=== PATIENT | female | born 1970 | race Caucasian/White ===

== ENCOUNTER → 2018-10-29 13:31 | Outpatient (CLI) | payer OTHER, SELFPAY ==
--- NOTE | 2018-10-29 | DI.CT.S_ITS ---
PROCEDURE: CT ANGIO CHEST ABDOMEN PELVIS INDICATIONS: Fibromuscular dysplasia TECHNIQUE: Precontrast 5 mm thick sections acquired from the lung apices to the iliac crests. After the administration of intravenous contrast, 2.5 mm thick sections again acquired from the lung apices to the iliac crests. Maximum intensity projection (MIP) oblique sagittal and coronal reformats were then acquired. For radiation dose reduction, the following was used: automated exposure control. COMPARISON: None. FINDINGS: Image quality: Excellent. AORTA: The aorta demonstrates normal course and caliber. No intramural hematoma. No wall thickening. No periaortic fat stranding. No stenosis. No aneurysmal dilatation. There is conventional anatomy of the great vessels. Visualized portions of the bilateral subclavian arteries, common carotid arteries, and vertebral arteries demonstrate normal course and caliber. CHEST: Lungs and pleura: No acute airspace opacities. No pleural effusions or pneumothorax. Central and peripheral airways are patent and normal in caliber. Mediastinum: Heart size is normal. No pericardial effusion. No mediastinal or hilar adenopathy by size criteria. Central pulmonary arteries are normal in size. Esophagus is normal in caliber. No hiatal hernias. Bones and chest wall: No axillary adenopathy by size criteria. Thyroid gland is unremarkable. No suspicious bony lesions. No vertebral body compression fractures. ABDOMEN: Vasculature: Celiac trunk and mesenteric arteries are patent. The renal arteries are patent without focal stenoses. Solid organs: Liver is normal in size and diffusely hypodense suggesting hepatic steatosis. Gallbladder is unremarkable. Biliary system is non dilated. Pancreas enhances normally. Spleen is normal in size and enhancement. No adrenal nodules. Both kidneys are normal in size and enhancement, without hydronephrosis. A low-density cystic lesion is present within the lower pole of the left kidney. Peritoneum and bowel: No free fluid or air. Bowel loops are normal in caliber and wall thickness. There are scattered sigmoid diverticula. No evidence for diverticulitis. The appendix is thin walled and gas filled. Nodes and vessels: No retroperitoneal or mesenteric adenopathy by size criteria. Inferior vena cava is normal in morphology. Miscellaneous: No ventral hernias. PELVIS: Genitourinary: Bladder wall thickness is normal. Miscellaneous: No inguinal hernias or adenopathy. No ventral hernias. Bones: No suspicious bony lesions. No vertebral body compression fractures. IMPRESSION: 1. Normal thoracic and abdominal aorta without focal stenosis, aneurysmal dilatation, or wall abnormalities. 2. Normal appearance of the mesenteric and renal arteries. Specifically, there are no mesenteric or renal arterial stenoses to suggest fibromuscular dysplasia. Dictated by: Jenni Montez M.D. on 10/29/2018 at 18:34 Approved by: Jenni Montez M.D. on 10/29/2018 at 18:38
== END ==
PROVIDERS: PCP Family Medicine; Visit Provider Nurse Practitioner
DX: I77.3 Arterial fibromuscular dysplasia (principal)
CPT/HCPCS: 71275; 74174; Q9967

== ENCOUNTER → 2018-11-21 08:44 | Outpatient (CLI) | payer OTHER, SELFPAY ==
--- NOTE | 2018-11-21 | DI.CT.S_ITS ---
PROCEDURE: CT ANGIO HEAD AND NECK INDICATIONS: Dissection of carotid artery TECHNIQUE: Pre-contrast 4.5 mm thick sections acquired from the foramen magnum to the vertex. Precontrast images were also obtained through the neck. After the administration of intravenous contrast, 1 mm thick sections acquired from the aortic arch through the [place]. Post-contrast 4.5 mm thick sections then re-acquired from the foramen magnum to the vertex. 3-dimensional bhmeogt-scdecevke-gkzqfthlip (MIP) and/or volume rendering reformats were acquired of the central intracranial vasculature and neck separately. COMPARISON: [facility], MR, BRAIN WITHOUT CONTRAST, 01/13/2011, 8:24. Outside Facility, RG, CT HEAD / NECK ANGIO, 06/12/2018, 11:14. Outside Facility, RG, MRI HEAD W/WO CONTRAST, 09/04/2018, 10:00. FINDINGS: Image quality: This examination is somewhat limited by quantum mottle artifact. BRAIN: CSF spaces: Ventricles are normal in size and shape. Basal cisterns are patent. No extra-axial fluid collections. Brain: No midline shift. No intracranial bleeds or masses. Person-white matter interface appears intact. Skull and face: Calvarium and facial bones appear intact, without suspicious lesions. Orbits appear normal. Sinuses: Sinuses and mastoids are clear. HEAD CT ANGIOGRAPHY: Anterior circulation: Intracranial internal carotid arteries are normal in size and flow. The flow within the paired anterior cerebral arteries is normal and symmetric. The flow within the middle cerebral arteries is normal and symmetric. The anterior communicating artery is seen. No aneurysms are seen. Posterior circulation: Visualized portions of the vertebral arteries demonstrate normal caliber, and join to form a normal appearing basilar artery. Flow within the posterior cerebral arteries is normal and symmetric. No aneurysms are seen. NECK CT ANGIOGRAPHY: Carotid system: The great vessels demonstrate a conventional anatomy as they arise from the aortic arch. The origins of the common carotid arteries appear patent. The common carotid arteries demonstrate normal caliber and courses. The bifurcation regions are both widely patent. Both proximal internal carotid arteries are patulous. A short segment dissection is again seen involving the distal left internal carotid artery, near the craniocervical junction. There is an associated pseudoaneurysm seen, which is best demonstrated on series 17 image 18. The left pseudoaneurysm is blind ending. Within the distal right internal carotid artery, there is again seen prominent tortuosity with a short segment dissection together with the pseudoaneurysm. The right pseudoaneurysm is best seen on series 17 image 78. The right pseudoaneurysm is connected to the true lumen both proximally and distally. The appearance is unchanged compared to the prior outside CT angiogram dated 06/12/18. Posterior circulation: The origins of the vertebral arteries both appear widely patent. The proximal left vertebral artery is tortuous. The more superior extracranial portions of both vertebral arteries also demonstrate normal courses and calibers. They join to form a normal appearing basilar artery. Soft tissues: Visualized neck soft tissues demonstrate no suspicious abnormalities. Scattered borderline prominent cervical lymph nodes are seen. Bones: No suspicious bony lesions. Visualized cervical spine appears normally aligned. Lower cervical spine degenerative changes are seen. 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 No significant intracranial arterial abnormality is seen. Any quantitative measurements of stenosis were performed using NASCET criteria. Dictated by: Helio Gallo M.D. on 11/21/2018 at 9:40 Approved by: Helio Gallo M.D. on 11/21/2018 at 9:51
== END ==
PROVIDERS: PCP Family Medicine; Visit Provider Specialist
DX: I77.71 Dissection of carotid artery (principal); I67.1 Cerebral aneurysm, nonruptured
CPT/HCPCS: 70496; 70498; Q9967

== ENCOUNTER → 2019-06-25 09:58 | Outpatient (CLI) | payer OTHER, SELFPAY ==
--- NOTE | 2019-06-25 | DI.CT.S_ITS ---
PROCEDURE: CT ANGIO HEAD AND NECK INDICATIONS: BILATERAL CAROTID ARTERY DISSECTION TECHNIQUE: Pre-contrast 4.5 mm thick sections acquired from the foramen magnum to the vertex. After the administration of intravenous contrast, 1 mm thick sections acquired from the aortic arch through the [place]. Post-contrast 4.5 mm thick sections then re-acquired from the foramen magnum to the vertex. 3-dimensional oefctcb-evudrzcax-ceugptnssb (MIP) and/or volume rendering reformats were acquired of the central intracranial vasculature and neck separately. COMPARISON: Outside Facility, RG, CT HEAD / NECK ANGIO, 06/12/2018, 11:14. Outside Facility, RG, MRI HEAD W/WO CONTRAST, 09/04/2018, 10:00. [facility], CT, CT ANGIO CHEST ABDOMEN PELVIS, 10/29/2018, 13:38. [facility], CT, CT ANGIO HEAD AND NECK, 11/21/2018, 9:02. FINDINGS: Image quality: Excellent. BRAIN: CSF spaces: Ventricles are normal in size and shape. Basal cisterns are patent. No extra-axial fluid collections. Brain: No midline shift. No intracranial bleeds or masses. Person-white matter interface appears intact. Skull and face: Calvarium and facial bones appear intact, without suspicious lesions. Orbits appear normal. Sinuses: Sinuses and mastoids are clear. HEAD CT ANGIOGRAPHY: Anterior circulation: Intracranial internal carotid arteries are normal in size and flow. The flow within the paired anterior cerebral arteries is normal and symmetric. The flow within the middle cerebral arteries is normal and symmetric. The anterior communicating artery is seen. No aneurysms are seen. Posterior circulation: Visualized portions of the vertebral arteries demonstrate normal caliber, and join to form a normal appearing basilar artery. Flow within the posterior cerebral arteries is normal and symmetric. No aneurysms are seen. NECK CT ANGIOGRAPHY: Carotid system: The great vessels demonstrate a conventional anatomy as they arise from the aortic arch. The origins of the common carotid arteries appear patent. The common carotid arteries demonstrate normal caliber and courses. The bifurcation regions are both widely patent. Within the left distal internal carotid artery just proximal to the craniocervical junction, there is again seen a short segment dissection with associated pseudoaneurysm, as on series 8 image 91 measuring 7 mm. This pseudoaneurysm is blind ending and is not significantly changed compared to the prior CT study. Within the right internal carotid artery, there is also seen a short segment dissection with an associated pseudoaneurysm, which appears contracted both of the proximal and distal aspects, which is seen approximately 3 cm proximal from the craniocervical junction, as on series 8 image 87 measuring 7 mm. Unchanged from the prior. No aneurysms are seen. Posterior circulation: The origins of the vertebral arteries both appear widely patent. The more superior extracranial portions of both vertebral arteries also demonstrate normal courses and calibers. They join to form a normal appearing basilar artery. Soft tissues: Visualized neck soft tissues demonstrate no suspicious abnormalities. Bones: No suspicious bony lesions. Visualized cervical spine appears normally aligned. IMPRESSION: Stable bilateral internal carotid artery dissections, with associated pseudoaneurysms. Unremarkable vertebral arteries. No significant intracranial arterial abnormality is seen. Any quantitative measurements of stenosis were performed using NASCET criteria. Dictated by: Helio Gallo M.D. on 06/25/2019 at 12:32 Approved by: Helio Gallo M.D. on 06/25/2019 at 12:39
== END ==
PROVIDERS: PCP Family Medicine; Referring Provider Surgery Vascular Surgery; Visit Provider Surgery Vascular Surgery
DX: I77.71 Dissection of carotid artery (principal); I72.0 Aneurysm of carotid artery
CPT/HCPCS: 70496; 70498; Q9967

== ENCOUNTER → 2019-08-06 17:35 | Outpatient (CLI) | payer OTHER, SELFPAY ==
--- NOTE | 2019-08-06 17:39 | DI.MRI.S_ITS ---
PROCEDURE: MR NECK WO/W CON INDICATIONS: Dysphagia, unspecified TECHNIQUE: Noncontrast sagittal T1 spin echo, axial FLAIR, axial gradient echo, axial diffusion and ADC acquired through the brain. Coronal STIR, thin-slice axial T1 spin echo through the orbits. After the administration of contrast, thin-slice axial and coronal T1 spin echo with fat saturation through the orbits, axial T1 spin echo with fat saturation through the brain. COMPARISON: [facility], MR, BRAIN WITHOUT CONTRAST, 01/13/2011, 8:24. Outside Facility, RG, CT HEAD / NECK ANGIO, 06/12/2018, 11:14. Outside Facility, RG, MRI HEAD W/WO CONTRAST, 09/04/2018, 10:00. [facility], CT, CT ANGIO CHEST ABDOMEN PELVIS, 10/29/2018, 13:38. [facility], CT, CT ANGIO HEAD AND NECK, 11/21/2018, 9:02. [facility], CT, CT ANGIO HEAD AND NECK, 06/25/2019, 11:25. FINDINGS: Image quality: Excellent. Orbits: Globes are symmetrical. The optic nerves are normal in size, without abnormal signal or enhancement. No retrobulbar masses or fat abnormalities. The extra-ocular muscles are normal and symmetric in appearance. Lacrimal glands are normal. Optic chiasm is normal. Periorbital soft tissues appear normal. CSF spaces: Ventricles are normal in size and shape. Basal cisterns are patent. No extra-axial fluid collections. Brain: No intracranial bleeds or mass effects. No abnormal intracranial enhancement. Person-white matter interface is intact. Diffusion weighted images demonstrate no acute ischemic insults. Pituitary gland appears normal, without sellar or suprasellar masses. Brainstem appears normal. Normal intravascular flow voids are present. Skull and face: Calvarial marrow is normal in signal. Sinuses: Sinuses and mastoids are clear. IMPRESSION: The patient carries a history of bilateral internal carotid artery short segmental dissections, not visible by the current examination but previously well documented by a CT angiography including performed 06/25/19. These are chronic findings by CT scanning, but below the threshold for detection by this current neck MR scanning without and with contrast. A source of reported dysphagia is not identified. No mass or inflammation is found. Depending on the clinical status followup by barium esophagram may be warranted. Dictated by: Melivn Farmer M.D. on 08/07/2019 at 9:19 Approved by: Melvin Farmer M.D. on 08/07/2019 at 9:35
== END ==
PROVIDERS: PCP Family Medicine; Referring Provider Psychiatry & Neurology Neurology; Visit Provider Psychiatry & Neurology Neurology
DX: R13.10 Dysphagia, unspecified (principal); I77.71 Dissection of carotid artery
CPT/HCPCS: 70543; A9579

== ENCOUNTER → 2019-09-09 17:36 | Outpatient (CLI) | payer OTHER, SELFPAY ==
--- NOTE | 2019-09-09 17:44 | DI.MRI.S_ITS ---
PROCEDURE: MR CERVICAL SPINE WO CON INDICATIONS: RADICULOPATHY,CERVICAL REGION TECHNIQUE: Noncontrast sagittal T1 spin echo and T2 fast spin echo, sagittal STIR, foraminal oblique sagittal T2 fast spin echo, and axial gradient echo or T2 fast spin echo through the cervical spine. COMPARISON: [facility], , C-SPINE WITHOUT CONTRAST, 01/13/2011, 8:43. FINDINGS: Image quality: Excellent. Alignment and Curvature: Straightening of the normal lordotic curvature. Trace anterolisthesis of C4 on C5 and grade 1 retrolisthesis of C6 on C7. Bone Marrow: Multilevel degenerative endplate sclerosis and spurring. Diffuse facet arthropathy. Spinal Cord: Visualized spinal cord has normal size and signal. No cerebellar tonsillar herniation. Paraspinous Soft Tissues: No paravertebral masses. Prevertebral soft tissues are normal in thickness. C2-C3: Normal appearance. C3-C4: No canal narrowing. Mild left foraminal stenosis. [id number] right foraminal stenosis with slight nerve root compression. No definite interval change although suboptimal comparison due to exam cortical differences. C4-C5: No definite canal stenosis. The left foraminal narrowing. Mild to moderate right foraminal stenosis with nerve root compression. No definite interval change. C5-C6: Mild canal narrowing. Severe right foraminal stenosis with nerve root compression. Mild left foraminal narrowing. This is probably slightly progressed on both sides C6-C7: Mild canal narrowing. Severe left foraminal stenosis. Mild right foraminal narrowing. This appears slightly progressed on both sides C7-T1: No canal stenosis. Mild right foraminal narrowing. No left foraminal stenosis. No definite interval change IMPRESSION: Multilevel cervical spondylosis and facet disease. Diffuse bilateral foraminal stenoses, with interval progression of C5-C6 and C6-C7 as discussed above Straightening of the normal lordotic curvature. Multilevel spondylolisthesis as above. Dictated by: Brenden Campbell M.D. on 09/10/2019 at 9:12 Approved by: Brenden Campbell M.D. on 09/10/2019 at 9:20
== END ==
PROVIDERS: PCP Family Medicine; Referring Provider Internal Medicine Sports Medicine; Visit Provider Internal Medicine Sports Medicine
DX: M47.22 Other spondylosis with radiculopathy, cervical region (principal); M48.02 Spinal stenosis, cervical region; M43.12 Spondylolisthesis, cervical region
CPT/HCPCS: 72141